=== PATIENT | female | born 1950 | race Caucasian/White ===

== ENCOUNTER → 2017-05-25 | Outpatient (CLI) | payer BC, MEDICARE ==
[~2017-05-25] MED LIST: CALC1TAB87 PO; CEPH-459 PO; CHLO12TA2 PO; MELO15TA20 PO; MULTTAB67 PO; VENL75TA PO; ZANT150T2 PO
[2017-05-25 09:26] LABS: BASOPHIL # 0.1 TH/MM3 (0-0.2); BASOPHIL % 0.7 % (0.0-2.0); EOSINOPHIL # 0.3 TH/MM3 (0-0.4); EOSINOPHIL % 3.6 % (0.0-4.0); HEMATOCRIT 39.7 % (35.0-46.0); HEMOGLOBIN 13.3 GM/DL (11.6-15.3); LYMPH % 29.5 % (9.0-44.0); LYMPHOCYTE # 2.1 TH/MM3 (1.0-4.8); MEAN CELL VOLUME 89.8 FL (80.0-100.0); MEAN CORPUSCULAR HEMOGLOBIN 30.1 PG (27.0-34.0); MEAN CORPUSCULAR HGB CONC 33.6 % (32.0-36.0); MEAN PLATELET VOLUME 9.8 FL (7.0-11.0); MONO % 10.2 % (0.0-8.0); MONOCYTE # 0.7 TH/MM3 (0-0.9); PLATELET COUNT 186 TH/MM3 (150-450); RED BLOOD COUNT 4.42 MIL/MM3 (4.00-5.30); RED CELL DISTRIBUTION WIDTH 14.3 % (11.6-17.2); WHITE BLOOD COUNT 7.2 TH/MM3 (4.0-11.0)
[2017-05-25 09:35] LABS: BILIRUBIN, URINE NEG (NEG); BLOOD, URINE NEG (NEG); GLUCOSE,URINE NEG (NEG); KETONE, URINE NEG (NEG); NITRITE,URINE NEG (NEG); PH, URINE 7.5 (5.0-8.5); URINE COLOR YELLOW (YELLW/STRAW); URINE LEUKOCYTE ESTERASE TRACE (NEG)
[2017-05-25 09:44] LABS: BICARBONATE 26.7 MEQ/L (21.0-32.0); CALCIUM 9.2 MG/DL (8.5-10.1); CREATININE 0.95 MG/DL (0.50-1.00)
--- NOTE | 2017-05-25 17:48 | EKG ---
Date Performed: 05/25/2017 Time Performed: 08:19:13 PTAGE: 66 years EKG: Sinus rhythm LEFT BUNDLE BRANCH BLOCK ABNORMAL ECG NO PREVIOUS TRACING DOCTOR: Desi Lea Interpretating Date/Time 05/25/2017 17:45:53
== END ==
LOC: CPRE 07:59
PROVIDERS: ATTEND Orthopaedic Surgery Orthopaedic Surgery of the Spine
DX: Z01.812 Encounter for preprocedural laboratory examination (principal); Z01.810 Encounter for preprocedural cardiovascular examination; M16.12 Unilateral primary osteoarthritis, left hip; I44.7 Left bundle-branch block, unspecified
CPT/HCPCS: 36415; 80048; 81001; 85025; 87086; 93005

== ENCOUNTER 2017-06-04 10:30 | Inpatient (IN) | payer MEDICARE, BC ==
[~2017-06-04] VITALS: Ht 167.6 cm; Wt 70.4 kg
[~2017-06-04 10:30] MED LIST changes: -CEPH-459 PO
[2017-06-04] MEDS ORDERED: ACET-822 PO (11:21)
[2017-06-04] MEDS ORDERED: GENTAMICIN SULFATE 80 MG/2 ML VIAL ONE (11:43)
[2017-06-04] MEDS ORDERED: SODIUM CHLORID 0.9% 500 ML IV PRN (11:45)
[2017-06-04] MEDS ORDERED: CHLORHEXIDINE GLUCONATE 4% SOLN 120 ML BTL TOPICAL SCH (11:45)
[2017-06-04] MEDS ORDERED: CHLORHEXIDINE GLUCONATE 2 % 1 PACK (2 CLOTHS) TOPICAL PRN (11:45)
[2017-06-04] MEDS ORDERED: ceFAZolin 2 GM PREMIX 50 ML IV SCH (11:45)
[2017-06-04] MEDS ORDERED: LACTATED RINGER'S 1000 ML IV PRN (11:45)
[2017-06-04] MEDS ORDERED: VANCOMYCIN 1000 MG/NS 250 ML (for <70 kg) IV SCH ×2 (11:45)
[2017-06-04] MEDS ORDERED: POVIDONE IODINE 5% (ANTISEPSIS KIT) 4 APPLICATIONS EACH NARE PRN (11:45)
[2017-06-04] MEDS ORDERED: METOPROLOL TARTRATE 25 MG TAB PO PRN (11:45)
[2017-06-04] MEDS ORDERED: INSULIN HUMAN REGULAR 1,000 UNITS/10 ML VIAL SQ PRN (11:45)
[2017-06-04] MEDS ORDERED: LIDOCAINE HCL 1% PF 5 ML SYRINGE OTHER ONE (12:00)
[2017-06-04] MEDS ORDERED: ceFAZolin INJ 1,000 MG VIAL IV ONE (12:00)
[2017-06-04] MEDS ORDERED: ONDANSETRON HCL 4 MG/2 ML VIAL IV ONE (12:00)
[2017-06-04] MEDS ORDERED: NEOSTIGMINE 5 MG/5 ML SYRINGE IV PUSH ONE (12:00)
[2017-06-04] MEDS ORDERED: STERILE WATER FOR INJECTION 20 ML VIAL IV ONE (12:00)
[2017-06-04] MEDS ORDERED: PHENYLEPH/NS 1000 MCG/10 ML SYR IV ONE (12:00)
[2017-06-04] MEDS ORDERED: ROCURONIUM INJ 50 MG/5 ML SYRINGE IV PUSH ONE (12:00)
[2017-06-04] MEDS ORDERED: GLYCOPYRROLATE 1 MG/5 ML SYRINGE IV PUSH ONE (12:00)
[2017-06-04] MEDS ORDERED: PROPOFOL 200 MG/20 ML AMP IV ONE (12:00)
[2017-06-04] MEDS ORDERED: DEXAMETHASONE SOD PHOS 4 MG/ML VIAL IV ONE (12:00)
[2017-06-04] MEDS ORDERED: ACETAMINOPHEN 1000 MG/100 ML 100 ML IV ONE (12:59)
[2017-06-04] MEDS ORDERED: FAMOTIDINE 20 MG/2 ML VIAL ONE (13:47)
[2017-06-04 16:00] VITALS: BP 103/52; PULSE 86; RESP 18; TEMP 96.4; O2SAT 96
[2017-06-04] MEDS ORDERED: WALKER WHEELS/F1 MIS (16:23)
[2017-06-04] MEDS ORDERED: Post-op Orders (for Pharmacy) XX ONE (16:30)
[2017-06-04] MEDS ORDERED: CHLORPHENIRAMINE 12 MG PO SCH ×2 (16:30→21:00)
[2017-06-04] MEDS ORDERED: ALUMINUM/MAGNESIUM/SIMETH 30 ML CUP PO PRN (16:30)
[2017-06-04] MEDS ORDERED: ACETAMINOPHEN/HYDROcodone 325 MG/5 MG TAB PO PRN (16:30)
[2017-06-04] MEDS ORDERED: NON-FORMULARY DRUG (Venlafaxine (Effexor) 75 MG) PO SCH (16:30)
[2017-06-04] MEDS ORDERED: MORPHINE SULFATE 8 MG/ML INJ IV PUSH PRN (16:30)
[2017-06-04] MEDS ORDERED: ZOLPIDEM TARTRATE 5 MG TAB PO PRN (16:30)
[2017-06-04] MEDS ORDERED: *morphine SULFATE 4 MG/ML PERIprocedure ONLY ONE (16:38)
[2017-06-04] MEDS ORDERED: MIDAZOLAM HCL 2 MG/2 ML VIAL ONE (16:40)
--- NOTE | 2017-06-04 16:54 | RADRPT ---
EXAM DATE/TIME: 06/04/2017 16:31 [place] COMPARISON: No previous studies available for comparison. INDICATIONS : Post op left hip arthroplasty MEDICAL HISTORY : Arthritis. SURGICAL HISTORY : Left hip arthroplasty ENCOUNTER: Initial ACUITY: 1 day PAIN SCORE: Non-responsive. LOCATION: Left Hip FINDINGS: Patient is status post left hip arthroplasty. Components appear well-seated. There is a small ossific fragment adjacent to the acetabulum on the left. Subcutaneous air is seen. CONCLUSION: Postoperative changes left hip arthroplasty. Naldo Lema MD on June 04, 2017 at 16:51 Board Certified Radiologist. This report was verified electronically.
[2017-06-04] MEDS: LACTATED RINGER'S 1000 ML INJ 1,000 ML IV SCH (17:00)
[2017-06-04] MEDS ORDERED: DO NOT ADM ANY ANTICOAGULANT DRUGS PRN (17:00)
[2017-06-04] MEDS ORDERED: *ENALAPRILAT 1.25 MG/ML VIAL PERIprocedural Use ONLY ONE (17:07)
--- NOTE | 2017-06-04 17:30 | MP ---
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 PROCEDURE: Left total hip arthroplasty. SURGEON: Jagdish Wang MD BARREL FILLER: SHUBHAM Parsons ESTIMATED BLOOD LOSS: 350 mL. SPECIMEN: Left femoral head. COMPLICATIONS: None. PLAN OF ACTIVITY: Per orders. PROCEDURE DESCRIPTION: My assistant professor of geography, SHUBHAM Parsons, was present for entire surgical case. She was medically necessary for entire case because of the complexity of the case and to facilitate the performance of the procedure. The NC MACHINIST was at the back table, not of skill-set for this case to manipulate the instruments, e.g., the multiple different types of soft tissue retractors, trial implants and permanent implants. Patient brought into the operating room and had satisfactory general anesthesia by department of anesthesia. Patient was found to have significant limb length discrepancy preoperatively with the left leg shorter than the right leg by approximately 1-1/4 to 1-1/2. Patient placed in lateral decubitus position. All pressure points were well padded. The left hip and lower extremity were prepped and draped in the usual sterile manner. A small posterolateral exposure of the hip was made. All bleeders were individually coagulated. Fascia jerri and gluteus osbaldo were incised in line with the skin incision. Charnley retractor was placed in the wound in order to allow better exposure. Great care was made to protect the sciatic nerve throughout the entire operative procedure. The short external rotators were removed as a group. The hip abductors were preserved. Capsulotomy was performed and the hip was dislocated posteriorly. Patient found to have severe ostearthritis with significant deformity involving the femoral head, possibly compatible not only with acetabular dysplasia and osteoarthritis, but possibly osteonecrosis of the femoral head. Osteotomy on the femoral neck was made at the appropriate level, and the hip was sent to pathology for final histological diagnosis. The acetabular labrum was surgically excised. Hemispherical reamers were then used to medialize the hip and to prepare the acetabulum. A bicentric cup was used in Press-Fit type manner. A 48 mm cup was found to be stable and satisfactory. Attention was now brought to the femur. It was sequentially broached through a #10 broach, standard offset. Multiple reductions were performed with different neck lengths. A +3 neck, 28 mm ball was found to be stable and satisfactory with satisfactory correction of the patient's limb length discrepancy, satisfactory stability of the hip and satisfactory range of motion of the hip. The hip again was dislocated posteriorly and all trial components were removed and preparation for insertion of the final prosthetic components was performed. The wound was irrigated with copious amounts of saline solution. The stem was placed in anatomic position in approximately 15 degrees of anteversion with an excellent "fit and fill". This was a #10 standard offset. A +3 neck, 28 mm ball, ceramic, was assembled onto the trunion. The hip was then reduced. Again, the patient was found to have satisfactory limb lengths, satisfactory stability and satisfactory range of motion. The wound again was irrigated with copious amounts of sterile saline antibiotic solution. The short external rotators were repaired back to the greater trochanter with drill holes using #2 Tycron suture. The fascia jerri and gluteus osbaldo were closed in line with the skin incision with #2 Tycron sutures, subcutaneous layer with 0 Vicryl and 2-0 Vicryl. Skin was approximated with running subcuticular 2-0 Nylon. Sterile dressings were applied. Patient tolerated the procedure well and arrived in the recovery room in stable and satisfactory condition. MD ROSAS Watkins/JUSTO , 04:22 PM , 05:29 PM TJ
[2017-06-04 18:40] VITALS: BP 103/52; PULSE 86; RESP 18; TEMP 96.4; O2SAT 96
[2017-06-04 20:38] VITALS: BP 103/52; PULSE 85; RESP 17; TEMP 96.7; O2SAT 95
[2017-06-04] MEDS ORDERED: NON-FORMULARY DRUG (Ranitidine (Zantac) 150 MG) PO SCH (21:00)
[2017-06-04] MEDS: VENLAFAXINE HCL XR 75 MG CAP PO SCH (21:47)
[2017-06-04] MEDS: FAMOTIDINE 20 MG TAB PO SCH (21:47)
[2017-06-04] MEDS: ASPIRIN EC 81 MG TABEC PO SCH (21:48)
[2017-06-05] VITALS (7 sets, daily range): BP systolic 104–138; BP diastolic 58–70; PULSE 94–117; RESP 17–18; TEMP 96.7–99.6; O2SAT 91–96
[2017-06-05] MEDS: ONDANSETRON HCL 4 MG/2 ML VIAL IVP PRN ×4 (03:37→20:51)
[2017-06-05] MEDS: LACTATED RINGER'S 1000 ML INJ 1,000 ML IV SCH ×3 (05:12→19:23)
[2017-06-05 06:51] LABS: HEMATOCRIT 25.8 % (35.0-46.0); HEMOGLOBIN 8.7 GM/DL (11.6-15.3)
--- NOTE | 2017-06-05 07:00 | PD.ORT.PN ---
Subjective Subjective Remarks POD#1 L THR No c/o pain No chest pain;no sob Objective Vitals Vital Signs Date Time Temp Pulse Resp B/P (MAP) Pulse Ox O2 Delivery O2 Flow Rate FiO2 06/05/17 03:25 98.3 94 17 112/58 (76) 93 06/05/17 00:24 97.8 94 17 104/70 (81) 96 06/04/17 21:25 Nasal Cannula 1.00 06/04/17 20:38 96.7 85 17 103/52 (69) 95 06/04/17 18:40 96.4 86 18 103/52 (69) 96 06/04/17 18:00 97.5 82 16 106/59 (75) 96 06/04/17 17:45 97.5 83 14 102/58 (73) 98 Nasal Cannula 2 06/04/17 17:30 79 16 111/60 (77) 99 06/04/17 17:15 85 20 152/75 (100) 99 06/04/17 16:45 92 16 166/76 (106) 100 06/04/17 16:30 97.5 112 18 169/35 (79) 97 06/04/17 11:23 98.5 88 20 161/86 (111) 99 I/O 06/04/17 06/04/17 06/04/17 06/05/17 06/05/17 06/05/17 07:00 15:00 23:00 07:00 15:00 23:00 Intake Total 1760 ml 851 ml Output Total 350 ml Balance 1410 ml 851 ml Intake Oral 360 ml IV Total 1400 ml 851 ml Output Estimated Blood Loss 350 ml # Voids 1 1 # Bowel Movements 0 Objective Remarks N/V intact No calf tenderness,neg dheeraj's No LLD Assessment & Plan Assessment and Plan Ortho stable PT/Rehab Aspirin EC 81 mg BIDx4 weeks TEDS for DVT prophylaxsis Patient lives by herself;SNF for continued rehab on POD#3 Jagdish Wang MD Jun 05, 2017 07:00
[2017-06-05] MEDS: VENLAFAXINE HCL XR 75 MG CAP PO SCH ×2 (08:54→19:27)
[2017-06-05] MEDS: MULTIVITAMIN TAB PO SCH (08:54)
[2017-06-05] MEDS: ASPIRIN EC 81 MG TABEC PO SCH ×2 (08:55→19:27)
[2017-06-05] MEDS ORDERED: NON-FORMULARY DRUG (Multiple Vitamin 1 TAB) PO SCH (09:00)
[2017-06-05] MEDS: ACETAMINOPHEN/HYDROcodone 325 MG/5 MG TAB PO PRN ×4 (09:02→22:42)
[2017-06-05] MEDS ORDERED: MAGNESIUM HYDROXIDE SUSP 30 ML CUP PO PRN (18:30)
[2017-06-05] MEDS ORDERED: BISACODYL 10 MG SUPP RECTAL PRN (18:30)
[2017-06-05] MEDS: DOCUSATE SODIUM 100 MG CAP PO SCH (19:27)
[2017-06-05] MEDS: LACTULOSE SYRUP 20 GM/30 ML CUP PO PRN (19:27)
[2017-06-05] MEDS: FAMOTIDINE 20 MG TAB PO SCH (19:27)
[2017-06-05] MEDS ORDERED: PILL SPLITTER OTHER PRN (20:30)
[2017-06-05] MEDS: LORATADINE 10 MG TAB PO SCH (20:50)
[2017-06-06] VITALS: BP 138/68; PULSE 103; RESP 17; TEMP 98.1; O2SAT 91
[2017-06-06] MEDS: ONDANSETRON HCL 4 MG/2 ML VIAL IVP PRN ×3 (06:02→19:03)
[2017-06-06] MEDS: ACETAMINOPHEN/HYDROcodone 325 MG/5 MG TAB PO PRN ×4 (06:02→19:01)
--- NOTE | 2017-06-06 07:42 | PD.ORT.PN ---
Subjective Subjective Remarks pt complains of mild post op hip pain no complaints of SOB, dizziness, headache Objective Vitals Vital Signs Date Time Temp Pulse Resp B/P (MAP) Pulse Ox O2 Delivery O2 Flow Rate FiO2 06/06/17 00:00 98.1 103 17 138/68 (91) 91 06/05/17 20:00 98.2 108 17 123/58 (79) 91 06/05/17 16:00 99.6 104 18 137/69 (91) 92 06/05/17 11:59 96.7 117 18 138/65 (89) 94 06/05/17 09:13 93 06/05/17 08:00 99.4 104 18 136/66 (89) 93 I/O 06/05/17 06/05/17 06/05/17 06/06/17 06/06/17 06/06/17 07:00 15:00 23:00 07:00 15:00 23:00 Intake Total 1211 ml 1129 ml 240 ml 0 ml Balance 1211 ml 1129 ml 240 ml 0 ml Intake Oral 360 ml 600 ml 240 ml 0 ml IV Total 851 ml 529 ml # Voids 1 3 2 0 # Bowel Movements 0 0 0 Result Diagram: 06/05/17 0520 Objective Remarks sitting up in bed comfortably left hip dressing dry and intact N/V intact No calf tenderness,neg dheeraj's No LLD Assessment & Plan Assessment and Plan POD # 2 s/p L ARISTIDES Ortho stable PT/Rehab Aspirin EC 81 mg BIDx4 weeks TEDS for DVT prophylaxsis Patient lives by herself;SNF for continued rehab on POD#3 Tiara Byrne Jun 06, 2017 07:42
[2017-06-06 08:06] VITALS: BP 146/73; PULSE 102; RESP 19; TEMP 98.8; O2SAT 93
[2017-06-06] MEDS: MULTIVITAMIN TAB PO SCH (09:26)
[2017-06-06] MEDS: DOCUSATE SODIUM 100 MG CAP PO SCH ×2 (09:26→19:41)
[2017-06-06] MEDS: VENLAFAXINE HCL XR 75 MG CAP PO SCH ×2 (09:26→19:42)
[2017-06-06] MEDS: ASPIRIN EC 81 MG TABEC PO SCH ×2 (09:26→19:42)
[2017-06-06] MEDS: LORATADINE 10 MG TAB PO SCH ×2 (09:26→19:42)
[2017-06-06 11:28] VITALS: BP 118/56; PULSE 96; RESP 24; TEMP 98.6; O2SAT 94
[2017-06-06 15:44] VITALS: BP 133/69; PULSE 100; RESP 19; TEMP 97.6; O2SAT 91
[2017-06-06 15:45] VITALS: BP 101/78; PULSE 76; RESP 17; TEMP 95.1; O2SAT 98
[2017-06-06] MEDS: LACTATED RINGER'S 1000 ML INJ 1,000 ML IV SCH (18:55)
[2017-06-06] MEDS: LACTULOSE SYRUP 20 GM/30 ML CUP PO PRN (19:42)
[2017-06-06] MEDS: FAMOTIDINE 20 MG TAB PO SCH (19:42)
[2017-06-06 19:55] VITALS: BP 111/63; PULSE 98; RESP 17; TEMP 96.7; O2SAT 90
[2017-06-07 00:30] VITALS: BP 116/58; PULSE 101; RESP 17; TEMP 98.4; O2SAT 93
[2017-06-07] MEDS: ONDANSETRON HCL 4 MG/2 ML VIAL IVP PRN ×2 (06:21→14:40)
[2017-06-07] MEDS: ACETAMINOPHEN/HYDROcodone 325 MG/5 MG TAB PO PRN ×3 (06:22→14:40)
[2017-06-07 08:00] VITALS: BP 108/60; PULSE 92; RESP 18; TEMP 97.3; O2SAT 94
[2017-06-07] MEDS: LACTATED RINGER'S 1000 ML INJ 1,000 ML IV SCH (08:09)
[2017-06-07] MEDS: VENLAFAXINE HCL XR 75 MG CAP PO SCH (08:16)
[2017-06-07] MEDS: ASPIRIN EC 81 MG TABEC PO SCH (08:17)
[2017-06-07] MEDS: MULTIVITAMIN TAB PO SCH (08:17)
[2017-06-07] MEDS: DOCUSATE SODIUM 100 MG CAP PO SCH (08:17)
[2017-06-07] MEDS: LORATADINE 10 MG TAB PO SCH (08:18)
[2017-06-07 12:03] VITALS: BP 106/61; PULSE 92; RESP 18; TEMP 96.1; O2SAT 94
--- NOTE | 2017-06-07 12:05 | PD.ORT.PN ---
Subjective Subjective Remarks pt has no complaints today, doing well ready to be discharged to rehab Objective Vitals Vital Signs Date Time Temp Pulse Resp B/P (MAP) Pulse Ox O2 Delivery O2 Flow Rate FiO2 06/07/17 08:00 97.3 92 18 108/60 (76) 94 06/07/17 00:30 98.4 101 17 116/58 (77) 93 06/06/17 19:55 96.7 98 17 111/63 (79) 90 06/06/17 15:44 97.6 100 19 133/69 (90) 91 I/O 06/06/17 06/06/17 06/06/17 06/07/17 06/07/17 06/07/17 07:00 15:00 23:00 07:00 15:00 23:00 Intake Total 0 ml 480 ml 360 ml 480 ml Balance 0 ml 480 ml 360 ml 480 ml Intake Oral 0 ml 480 ml 360 ml 480 ml # Voids 0 2 3 1 # Bowel Movements 0 0 0 0 Result Diagram: 06/05/17 0520 Objective Remarks Also seen by Dr. Jagdish Wang sitting up in bed comfortably left hip dressing dry and intact N/V intact No calf tenderness,neg dheeraj's No LLD Assessment & Plan Assessment and Plan POD #3 s/p L ARISTIDES Ortho stable PT/Rehab Aspirin EC 81 mg BIDx4 weeks TEDS for DVT prophylaxsis discharge to SNF today Tiara Byrne Jun 07, 2017 12:05
--- NOTE | 2017-06-13 15:49 | HHI.DS ---
Discharge Summary Admission Date Jun 04, 2017 at 10:30 Discharge Date: Jun 07, 2017 Admitting Diagnosis Left hip OA Diagnosis: (1) Osteoarthritis of left hip Diagnosis: Principal ICD Codes: M16.12 - Unilateral primary osteoarthritis, left hip Procedures L ARISTIDES Brief History This is a 66 year old female patient who presents with the following history. Patient has had left hip pain for many years. Her pain has worsened in the last six months. 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 She has taken Aleve, Tylenol, Meloxicam, assistive ambulation. She has had a left hip manipulation 01/16/17 which only relieved her symptoms temporarily. She states the hip pain is now interfering with her ADLs. Imaging x-rays of the left hip show severe osteoarthritis with acetabular dysplasia PE at Discharge Also seen by Dr. Jagdish Wang sitting up in bed comfortably left hip dressing dry and intact N/V intact No calf tenderness,neg dheeraj's No LLD Hospital Course Patient underwent satisfactory anaesthesia by the dept of anaesthesia. She underwent left total hip arthroplasty on the date of admission. She was started with baby aspirin night before procedure and then will be continued with aspirin 81 mg bid x 4 weeks post operatively. Also was treated with knee high TEDs and sequentials during her hospital stay. She was started with full weight bearing ambulation on pod #1. She progressed well during her stay. She was discharged to a SNF pod # 3 in stable condition Pt Condition on Discharge: Stable Discharge Disposition: Discharge to SNF Discharge Instructions Diet Instructions: As Tolerated, No Restrictions Activities You Can Perform: Weight Bearing as Tiara Kaba Jun 13, 2017 15:49
== END 2017-06-07 15:04 | DRG 470 ==
LOC: HSDI 10:30 → EDUNIT# 12:30 → N06B 18:18
PROVIDERS: ADMIT Orthopaedic Surgery Orthopaedic Surgery of the Spine; ATTEND Orthopaedic Surgery Orthopaedic Surgery of the Spine
PROC: 0SRB03A Replacement of Left Hip Joint with Ceramic Synthetic Substitute, Uncemented, Open Approach (ICD-10-PCS; principal; 2017-06-04 14:15)
DX: M19.90 Unspecified osteoarthritis, unspecified site (principal); Z90.2 Acquired absence of lung [part of]; Q65.89 Other specified congenital deformities of hip; H35.30 Unspecified macular degeneration; Z85.118 Personal history of other malignant neoplasm of bronchus and lung; Z85.3 Personal history of malignant neoplasm of breast; Z92.21 Personal history of antineoplastic chemotherapy
CPT/HCPCS: 36415; 73501; 85014; 85018; 86850; 86900; 86901; 86920; 88304; 88305; 88311; 94150; C1776; J0131; J0690; J1100; J1580; J2250; J2270; J2370; J2405; J2710; J3010; J3370; J7050; J7120; L1830